=== PATIENT | male | born 1955 | race Caucasian/White ===

== ENCOUNTER 2019-01-30 09:25 | Inpatient (IN) | payer MEDICARE ==
--- NOTE | 2019-01-17 12:41 | HP ---
AMENDED REPORT NOW INCLUDES COSIGNER DESIGNATION HISTORY AND PHYSICAL: DATE OF ADMISSION/SURGERY: 01/30/19 DATE OF OFFICE VISIT: 01/17/19. SURGEON: Salma Valiente MD * (DICTATED BY OSMIN ALVARADO) PROCEDURE: Right total knee arthroplasty. CHIEF COMPLAINT: Right knee pain. HISTORY OF PRESENT ILLNESS: Mr. Doran is a 63-year-old gentleman with continued complaints of right knee pain. He has failed conservative treatment and elected to proceed with a right total knee arthroplasty. PAST MEDICAL HISTORY: Hypertension, obstructive hypertrophic cardiomyopathy, congenital insufficiency of mitral valve, BPH, and history of Lyme disease. PAST SURGICAL HISTORY: Right knee arthroscopy, tonsillectomy, adenoidectomy, and trigger finger release. CURRENT MEDICATIONS: 1. Diltiazem 180 mg daily. 2. Cardura 8 mg daily. 3. Metoprolol 25 mg a day. 4. Hydroxychloroquine as needed. ALLERGIES: PENICILLIN and SPIRONOLACTONE. FAMILY HISTORY: Cancer, COPD, stroke, and Alzheimer's. SOCIAL HISTORY: He is a 63-year-old gentleman, lives alone. He does not smoke or use drugs. Uses alcohol rarely. REVIEW OF SYSTEMS: A complete 14-point review of systems was reviewed with the patient, was all negative or noncontributory. He denies history of DVT, PE, hepatitis, HIV, or anesthesia problems. PHYSICAL EXAMINATION GENERAL: He is a well developed, well nourished, in no acute distress. VITAL SIGNS: He stands 71 inches tall, weighs 182 pounds. Blood pressure 142/ 84 and heart rate is 72. HEENT: Normocephalic, atraumatic. NECK: Supple. No palpable lymph nodes. PULMONARY: The lungs are clear to auscultation bilaterally. CARDIO: Regular rate and rhythm. Strong S1, S2. ABDOMEN: Soft, nontender, nondistended. NEUROLOGICAL: He is alert and oriented x3. MUSCULOSKELETAL: Right lower extremity: The skin is intact. There are no open wounds or abrasions. There is a 15-degree valgus deformity of the knee. Range of motion is 10 to 120 degrees of flexion with patellofemoral crepitus. He has a 2+ dorsalis pedis pulse. He is able to dorsiflex and plantarflex and he has intact sensation. ASSESSMENT AND PLAN: Mr. Doran is a 63-year-old gentleman with end-stage osteoarthritis of the right knee. He has failed conservative treatment and elected to proceed with a right total knee arthroplasty. The surgery is scheduled for 01/30/[address] Valiente discussed the risks and benefits of the surgery at today's visit and all of his questions were answered. He will follow up with Dr. Valiente 2 weeks after the surgery. OSMIN ALVARADO [id number]/[facility] #: [id number] TRISTAN
[~2019-01-30 09:25] MED LIST: Acetaminophen IV 1GM/100ML * 1,000 MG/100 ML VIAL IVPB ONE; Buffered Lidocaine 1% SYRIN* 1 ML/SYRINGE INTRADERM ONE; Dexamethasone IV* 4 MG/ML 1 ML (4 MG) IV SLOW PU ONE; Famotidine IV* 10 MG/ML 2 ML (20 mg) IV ONE; Gabapentin CAP(*) 300 MG PO ONE; Lactated Ringers 1000 ML Bag* 1,000 ML IV SCH; Tranexamic Acid 1,000 MG in NS 0.9% 50 ML* (outpatient use) IV SCH; celeCOXIB CAP* 200 MG PO ONE
[2019-01-30] MEDS ORDERED: Acetaminophen IV 1GM/100ML * 100 ML ONE (09:29)
--- OUTSIDE RECORDS SUMMARY | 2019-01-30 09:30 | XMS REPORT | Continuity of Care Document ---
:1955 External Reference #:[id number] Author Name Vida Dowling Care Team Providers Name Role Phone Kana Díaz MD Primary Care Physician Unavailable Payers Date Identification Numbers Payment Provider Subscriber Policy Number: [id number] Medicare Tu Doran PayID: [id number] [address] [place] [address] Effective: 2016 Policy Number: [id number] [employer] Tu Doran Expires: 2018 PayID: [id number] [address] [address] [place] [address] Policy Number: [id number] [facility] Tu Doran PayID: [id number] [address] [place] [address] Advance Directives Description No Information Available Problems Date Description Provider Status Onset: 09/19/2012 Electrocardiogram abnormal Shukri Boles M.D. Active Onset: 07/15/2014 Mitral valve disorder Shukri Boles M.D. Active Onset: 01/21/2016 Essential hypertension Shukri Boles M.D. Active Onset: 12/13/2018 Localized, primary osteoarthritis Salma Valiente M.D. Active Onset: 09/19/2012 Difficulty breathing Shukri Boles M.D. Resolved Resolved: 01/21/2016 Family History Date Family Member(s) Observation Comments General Cancer General Hypertension General Stroke Father Coronary Artery Disease [place] mid 60's age (CAD) 70 CVA tobacco use Mother dementia in sleep age 83 Onset: (01/21/2016) Siblings 4 four sisters no HCM or CAD as far as pt knows. Social History Type Date Description Comments Sex Unknown Marital Status 2016 2 children son 36 daughter 34 Lives With Alone Occupation Retired ETOH Use Occasionally consumes alcohol Tobacco Use Start: Unknown End: Patient is a former Quit in 1989 Unknown smoker Recreational Drug Use Denies Drug Use Smoking Status Reviewed: 01/17/19 Patient is a former Quit in 1989 smoker Exercise Type/Frequency Exercises regularly Exercise Type/Frequency Walks 5 times a week Allergies, Adverse Reactions, Alerts Date Description Reaction Status Severity Comments 10/08/2012 Penicillin mouth sores Active 06/09/2013 Spironolactone Active gynecomastia tenderness. Medications Medication Date Status Form Strength Qnty SIG Indications Ordering Provider Diltiazem HCL ER 09/08/ Active Caps ER 180mg 100cap 1 tablet Shukri 2013 24HR s each F. Yamileth Boles Cardura 00/ Active Tablets 8mg 90tabs 1 po qd in Unknown 0000 the evening Metoprolol 0000/ Active Tablets 25mg 1 by mouth Unknown Succinate ER 0000 ER 24HR every day Azithromycin / Active Tablets 250mg Take 2 Unknown 0000 Tablets By Mouth Together On Day 1 Then Take 1 Tablet Daily On Days 2 Through 5 Diltiazem HCL CD 09/08/ Hx Caps ER 360mg 1 by mouth Shukri 2013 - 24HR every day . 09/08/ Elvi2013 Yamileth Diltiazem HCL ER 02/27/ Hx Caps ER 120mg 60caps 1 by mouth Shukri 2013 - 24HR every day . 09/08/ Elvi, 2013 Yamileth Atenolol 11/27/ Hx Tablets 25mg 100tab 1/2 by Shukri 2012 - s mouth . 01/05/ every day Elvi 2018 Yamileth Spironolactone 11/13/ Hx Tablets 25mg 60tabs 1 po bid Shukri 2011 - . 06/09/ Elvi, 2012 Yamileth Spironolactone 11/07/ Hx Tablets 25mg 30tabs 1 po qd Shukri 2011 - . 11/13/ Elvi, 2011 Yamileth Atenolol 10/30/ Hx Tablets 25mg 1/2 tablet Shukri 2011 - po qd . Elvi, 2012 Yamileth Atenolol 10/21/ Hx Tablets 50mg 100tab 1/2 po qd Shukri 2011 - s F. 10/30/ Elvi 2011 Yamileth Diltiazem CD 10/21/ Caps ER 120mg 60caps 2 po qd Shukri 2011 - 24HR F. 02/27/ Elvi 2013 Yamileth Aspirin / Hx Tablets 81mg 1 po qd Unknown 0000 - DR (3-4 times 12/12/ weekly per 2019 pt 01/09/18) Atenolol / Hx Tablets 25mg 90tabs 2 po qd Unknown 0000 - 2011 Atorvastatin / Hx Tablets 10mg 30tabs 1 po qd Unknown Calcium 0000 - hold as of .2.13 for 2012 1 month Diovan HCT / Hx Tablets 320-12.5mg 90tabs 1/2 tablet Unknown 0000 - po qd 2011 Amoxicillin / Hx Tablets 500mg 180tab 2 po tid Unknown 0000 - s 2012 Meloxicam / Hx Tablets 15mg 1 by mouth Unknown 0000 - every day 12/12/ prn 2018 Augmentin / Hx Tablets 875-125mg one by Unknown 0000 - mouth tid 2015 Medications Administered in Office Medication Date Status Form Strength Qnty SIG Indications Ordering Provider Depomedrol Administered Injection Salma 40MG 019 Yamileth Valiente Depomedrol Administered Injection Salma 40MG 019 Yamileth Valiente Immunizations Description No Information Available Vital Signs Date Vital Result Comment 01/17/2019 9:02am Height 71 inches 5'11" Weight 182.00 lb BP Systolic 142 mmHg BP Diastolic 84 mmHg Respiratory Rate 16 /min Body Temperature 98.4 F Pain Level 2 BMI (Body Mass Index) 25.4 kg/m2 01/06/2019 11:11am Height 71 inches 5'11" Weight 180.31 lb Without Shoes Heart Rate 72 /min BP Systolic Sitting 150 mmHg Lue Reg Cuff BP Diastolic Sitting 90 mmHg Lue Reg Cuff BP Systolic Standing 152 mmHg Lue Reg Cuff BP Diastolic Standing 96 mmHg Lue Reg Cuff BMI (Body Mass Index) 25.1 kg/m2 Ejection Fraction 60-65% ECHO 03/29/17 12/13/2018 11:34am Height 71 inches 5'11" Weight 186.00 lb Heart Rate 72 /min BP Systolic 140 mmHg BP Diastolic 86 mmHg Body Temperature 98.5 F Pain Level 2 BMI (Body Mass Index) 25.9 kg/m2 05/02/2018 2:07pm Height 71 inches 5'11" Weight 194.00 lb BP Systolic 150 mmHg BP Diastolic 92 mmHg Respiratory Rate 17 /min Body Temperature 98.4 F Pain Level 2 BMI (Body Mass Index) 27.1 kg/m2 01/09/2018 1:18pm Height 71 inches 5'11" Weight 182.25 lb Heart Rate 60 /min BP Systolic Sitting 146 mmHg LA, reg cuff BP Diastolic Sitting 78 mmHg LA, reg cuff BMI (Body Mass Index) 25.4 kg/m2 Ejection Fraction 60%-65% echo 03/29/17 04/06/2017 1:42pm Height 71 inches 5'11" Weight 183.00 lb w/o shoes Heart Rate 60 /min BP Systolic Sitting 160 mmHg LA reg cuff BP Diastolic Sitting 86 mmHg LA reg cuff BMI (Body Mass Index) 25.5 kg/m2 Ejection Fraction 60% - 65% echo 03/29/17 03/20/2017 3:45pm Height 71 inches 5'11" Weight 181.75 lb w/o shoes Heart Rate 66 /min BP Systolic Sitting 166 mmHg LA reg cuff BP Diastolic Sitting 92 mmHg LA reg cuff BP Systolic Standing 128 mmHg la repeat sitting BP Diastolic Standing 84 mmHg la repeat sitting BMI (Body Mass Index) 25.3 kg/m2 Ejection Fraction 60% - 65% echo 05/30/16 01/21/2016 4:01pm Height 71 inches 5'11" Weight 177.50 lb Heart Rate 88 /min apical BP Systolic Sitting 142 mmHg LA, regular cuff BP Diastolic Sitting 78 mmHg LA, regular cuff BMI (Body Mass Index) 24.8 kg/m2 Ejection Fraction 55-60% stress echo 05/13/15 03/25/2015 3:41pm Height 71 inches 5'11" Weight 189.75 lb Heart Rate 70 /min home 56-64 BP Systolic Sitting 150 mmHg LA, reg (home 140/80) BP Diastolic Sitting 90 mmHg LA, reg (home 140/80) BMI (Body Mass Index) 26.5 kg/m2 Ejection Fraction 60%-65% 03/12/15 echo 09/08/2014 3:49pm Height 71 inches 5'11" Weight 197.50 lb with out shoes Heart Rate 62 /min BP Systolic Sitting 148 mmHg LA reg cuff BP Diastolic Sitting 90 mmHg LA reg cuff Respiratory Rate 16 /min BMI (Body Mass Index) 27.5 kg/m2 07/15/2014 3:23pm Height 71 inches 5'11" Weight 197.00 lb Heart Rate 52 /min BP Systolic Sitting 150 mmHg LA reg cuff BP Diastolic Sitting 86 mmHg LA reg cuff Respiratory Rate 12 /min BMI (Body Mass Index) 27.5 kg/m2 06/09/2013 4:02pm Height 71 inches 5'11" Weight 192.00 lb Heart Rate 51 /min BP Systolic 157 mmHg BP Diastolic 90 mmHg Respiratory Rate 14 /min BMI (Body Mass Index) 26.8 kg/m2 12/31/2012 3:02pm Height 71 inches 5'11" Weight 198.00 lb Heart Rate 60 /min 57 BP Systolic 152 mmHg 154/91 BP Diastolic 88 mmHg 154/91 BMI (Body Mass Index) 27.6 kg/m2 11/27/2012 2:51pm Height 71 inches 5'11" Weight 204.00 lb Heart Rate 72 /min BP Systolic 138 mmHg BP Diastolic 78 mmHg BMI (Body Mass Index) 28.4 kg/m2 10/21/2012 4:11pm Weight 221.00 lb Heart Rate 61 /min BP Systolic 170 mmHg BP Diastolic 90 mmHg Respiratory Rate 16 /min Results Description No Information Available Procedures Date Code Description Status 01/14/2019 14214 ECHO Transthoracic, Real-Time 2D With Doppler And Color Completed Flow 01/14/2019 33703 ECHO Transthoracic, Real-Time 2D With Doppler And Color Completed Flow 01/06/2019 53413 EKG Tracing & Interpretation Completed 12/13/2018 08790 Inject/Drain Joint/Bursa Major W/O US Completed 08/29/2018 15151 Destruction ALL Benign Or Premalignant Lesion (Other Than Completed [place] 08/27/2018 96282 Each Additional Biopsy Completed 08/27/2018 82435 Biopsy Skin Lesion Single Completed 01/09/2018 81607 EKG Tracing & Interpretation Completed 03/29/2017 92145 ECHO Transthoracic, Real-Time 2D With Doppler And Color Completed Flow 03/20/2017 80945 EKG Tracing & Interpretation Completed 05/30/2016 18208 ECHO Transthoracic, Real-Time 2D With Doppler And Color Completed Flow 01/21/2016 52005 EKG Tracing & Interpretation Completed 05/13/2015 64004 ECHO Stress Test Incl Perf Contiuous ekg Monitoring W/Phys Completed Superv 03/25/2015 83964 EKG Tracing & Interpretation Completed 03/12/2015 51253 ECHO Transthoracic, Real-Time 2D With Doppler And Color Completed Flow 08/03/2014 81805 ECHO Transthoracic, Real-Time 2D With Doppler And Color Completed Flow 07/15/2014 39751 EKG Tracing & Interpretation Completed 06/09/2013 16648 EKG Tracing & Interpretation Completed 11/27/2012 51313 EKG Tracing & Interpretation Completed 10/21/2012 26020 EKG Tracing & Interpretation Completed 10/07/2012 07537 ECHO Transthoracic, Real-Time 2D With Doppler And Color Completed Flow 09/19/2012 73327 ECHO Stress Test Incl Perf Contiuous ekg Monitoring W/Phys Completed Superv 09/19/2012 38038 ECHO Stress Test Incl Perf Contiuous ekg Monitoring W/Phys Completed Superv Encounters Type Date Location Provider Dx Diagnosis Office Visit 01/06/2019 [place] [facility] Renetta Hendrix, I42.1 Obstructive 11:30a N.P. hypertrophic cardiomyopathy I34.0 Nonrheumatic mitral (valve) insufficiency E78.00 Pure hypercholesterolemia, unspecified I10 Essential (primary) hypertension Office Visit 12/13/2018 10:30a [facility] Salma Valiente, M25.562 Pain in left Of [facility] M.D. knee M25.561 Pain in right knee M25.462 Effusion, left knee M25.461 Effusion, right knee M17.0 Bilateral primary osteoarthritis of knee M21.061 Valgus deformity, not elsewhere classified, right knee M21.062 Valgus deformity, not elsewhere classified, left knee M17.31 Unilateral post-traumatic osteoarthritis, right knee M17.12 Unilateral primary osteoarthritis, left knee Office Visit 08/27/2018 9:20a [facility] Romana Torres, L82.1 Other seborrheic MD keratosis D23.71 Oth benign neoplasm skin/ right lower limb, including hip D23.72 Oth benign neoplasm skin/ left lower limb, including hip D23.62 Oth benign neoplasm skin/ left upper limb, inc shoulder L98.9 Disorder of the skin and subcutaneous tissue, unspecified Office Visit 05/02/2018 [facility] Ana Maria M65.331 Trigger finger, 2:00p [facility] Pacheco right middle finger [facility] Office Visit 01/09/2018 [place] Shukri Servin I42.1 Obstructive 1:30p Cardiology Yamileth Boles hypertrophic cardiomyopathy I34.0 Nonrheumatic mitral (valve) insufficiency I10 Essential (primary) hypertension E78.00 Pure hypercholesterolemia, unspecified Office Visit 04/06/2017 2:00p [facility] Vida Platt, I34.0 Nonrheumatic mitral PA (valve) insufficiency I42.1 Obstructive hypertrophic cardiomyopathy I10 Essential (primary) hypertension Office Visit 03/20/2017 [place] Shukri Servin I42.1 Obstructive 3:20p Cardiology Yamileth Boles hypertrophic cardiomyopathy I34.0 Nonrheumatic mitral (valve) insufficiency I10 Essential (primary) hypertension Office Visit 01/21/2016 3:40p [place] Shukri Servin I34.0 Nonrheumatic mitral Cardiology Yamileth Boles (valve) insufficiency I42.1 Obstructive hypertrophic cardiomyopathy I10 Essential (primary) hypertension Office Visit 03/25/2015 3:20p [facility] Shukri Servin 424.0 Mitral Valve Yamileth Boles Disorder 401.1 Hypertension Benign 425.9 Cardiomyopathy Secondary Unspecified Office Visit 09/08/2014 4:00p [facility] Shukri Servin 424.0 Mitral Valve Yamileth Boles Disorder 401.1 Hypertension Benign 425.9 Cardiomyopathy Secondary Unspecified Office Visit 07/15/2014 3:20p [facility] Shukri Servin 401.1 Theresa Boles M.D. Benign 272.0 Hypercholesterolemia Pure 424.0 Mitral Valve Disorder Office Visit 06/09/2013 3:40p [facility] Shukri Servin 401.1 Hypertension Yamileth Boles Benign 786.09 Dyspnea & Respiratory Abnormalities Other 272.0 Hypercholesterolemia Pure Office Visit 12/31/2012 [place] Nurse Visit cc 401.1 Hypertension Benign 3:00p Cardiology Office Visit 11/27/2012 Sor[facility] Servin 786.09 Dyspnea & 3:00p Cardiology Yamileth Boles Respiratory Abnormalities Other 272.0 Hypercholesterolemia Pure 401.1 Hypertension Benign 794.31 Electrocardiogram (ECG) (EKG) Abnormal Office Visit 10/21/2012 [facility] Servin 786.09 Dyspnea & 4:00p Cardiology Yamileth Boles Respiratory Abnormalities Other 424.0 Mitral Valve Disorder 272.0 Hypercholesterolemia Pure 794.31 Electrocardiogram (ECG) (EKG) Abnormal 401.1 Hypertension Benign Office Visit 09/19/2012 [facility] Servin 786.09 Dyspnea & 3:30p Cardiology Yamileth Boles Respiratory Abnormalities Other 794.31 Electrocardiogram (ECG) (EKG) Abnormal 272.0 Hypercholesterolemia Pure Plan of Treatment Future Appointment(s):01/30/2019 12:30 pm - Salma Valiente M.D. at [facility]02/25/2019 8:20 am - Romana Torres MD at [facility]
--- OUTSIDE RECORDS SUMMARY | 2019-01-30 09:30 | XMS REPORT | Continuity of Care Document ---
:1955 External Reference #:[id number] Author Name PinedaHemalatha Care Team Providers Name Role Phone Kana Díaz MD Primary Care Physician Unavailable Payers Date Identification Numbers Payment Provider Subscriber Policy Number: [id number] Medicare Tu Doran PayID: [id number] [address] [place] [address] Effective: 2016 Policy Number: [id number] [employer] Tu Doran Expires: 2018 PayID: [id number] [address] [address] [place] [address] Policy Number: [id number] [facility] Tu Doran PayID: [id number] [address] [place] [address] Advance Directives Description No Information Available Problems [...] Hypertension General Stroke Father Coronary Artery Disease [place] mid 60's age (CAD) 70 CVA tobacco [...] Use Denies Drug Use Smoking Status Reviewed: 01/06/19 Patient is a former Quit in 1989 [...] tablet Shukri 2013 24HR s each F. Mauser, morning M.D. Cardura / Active Tablets 8mg 90tabs 1 po qd Unknown 0000 in the evening Metoprolol 0000/ Active Tablets 25mg 1 by Unknown Succinate ER 0000 ER 24HR mouth every day Diltiazem HCL CD 09/08/ Hx Caps ER 360mg 1 by Shukri 2013 - 24HR mouth F. Mauser, 09/08/ every day M.D. 2013 Diltiazem HCL ER 02/27/ Hx Caps ER 120mg 60caps 1 by Shukri 2013 - 24HR mouth F. Mauser, 09/08/ every day M.D. 2013 Atenolol 11/27/ Hx Tablets 25mg 100tab 1/2 by Shukri 2012 - s mouth F. Mauser, 01/05/ every day M.D. 2019 Spironolactone 11/13/ Hx Tablets 25mg 60tabs 1 po bid Shukri 2011 - F. Mauser, 06/09/ M.D. 2012 Spironolactone 11/07/ Hx Tablets 25mg 30tabs 1 po qd Shukri 2011 - F. Liviauser, 11/13/ M.D. 2011 Atenolol 10/30/ Hx Tablets 25mg 1/2 Shukri 2011 - tablet po F. Mauser, 11/27/ qd M.D. 2012 Atenolol 10/21/ Hx Tablets 50mg 100tab 1/2 po qd Shukri 2011 - s F. Mauser, 10/30/ Yamileth 2011 Diltiazem CD 10/21/ Caps ER 120mg 60caps 2 po qd Shukri 2011 - 24HR Malathi Boles, 02/27/ Yamileth 2013 Aspirin / Hx Tablets 81mg 1 po qd Unknown 0000 - DR (3-4 12/12/ times 2019 weekly per pt 01/09/18) Atenolol / Hx Tablets 25mg 90tabs 2 po qd Unknown 0000 - 2011 Atorvastatin / Hx Tablets 10mg 30tabs 1 po qd Unknown Calcium 0000 - hold as 1.2.13 2012 for 1 month Diovan HCT / Hx Tablets 320-12.5mg 90tabs 11/27 Unknown 0000 - tablet po 11/11/ qd 2011 Amoxicillin / Hx Tablets 500mg 180tab 2 po tid Unknown 0000 - s 2012 Meloxicam / Hx Tablets 15mg 1 by Unknown 0000 - mouth every day 2018 prn Augmentin / Hx Tablets 875-125mg one by Unknown 0000 - mouth tid 2015 Medications Administered in Office Medication Date Status Form Strength Qnty SIG Indications Ordering Provider Depomedrol Administered Injection Salma 40MG 019 Yamileth Valiente Depomedrol Administered Injection Salma 40MG 019 Yamileth Valiente Immunizations Description No Information Available Vital Signs Date Vital Result Comment 01/06/2019 11:11am Height 71 inches 5'11" Weight [...] Information Available Procedures Date Code Description Status 01/06/2019 54094 EKG Tracing & Interpretation Completed 12/13/2018 92547 Inject/Drain Joint/Bursa Major W/O US Completed 08/29/2018 10463 Destruction ALL Benign Or Premalignant Lesion (Other Than Completed [place] 08/27/2018 81871 Each Additional Biopsy Completed 08/27/2018 86076 Biopsy Skin Lesion Single Completed 01/09/2018 98553 EKG Tracing & Interpretation Completed 03/29/2017 26247 ECHO Transthoracic, Real-Time 2D With Doppler And Color Completed Flow 03/20/2017 79062 EKG Tracing & Interpretation Completed 05/30/2016 88682 ECHO Transthoracic, Real-Time 2D With Doppler And Color Completed Flow 01/21/2016 06125 EKG Tracing & Interpretation Completed 05/13/2015 52930 ECHO Stress Test Incl Perf Contiuous ekg Monitoring W/Phys Completed Superv 03/25/2015 47201 EKG Tracing & Interpretation Completed 03/12/2015 67471 ECHO Transthoracic, Real-Time 2D With Doppler And Color Completed Flow 08/03/2014 14067 ECHO Transthoracic, Real-Time 2D With Doppler And Color Completed Flow 07/15/2014 29412 EKG Tracing & Interpretation Completed 06/09/2013 91071 EKG Tracing & Interpretation Completed 11/27/2012 06258 EKG Tracing & Interpretation Completed 10/21/2012 30211 EKG Tracing & Interpretation Completed 10/07/2012 58269 ECHO Transthoracic, Real-Time 2D With Doppler And Color Completed Flow 09/19/2012 93286 ECHO Stress Test Incl Perf Contiuous ekg Monitoring W/Phys Completed Superv 09/19/2012 40781 ECHO Stress Test Incl Perf Contiuous ekg Monitoring W/Phys Completed Superv Encounters Type Date Location Provider Dx Diagnosis Office Visit 12/13/2018 [facility] Salma Valiente, M25.562 Pain in left knee 10:30a [facility] M25.561 Pain in right knee M25.462 Effusion, left knee M25.461 Effusion, right knee M17.0 Bilateral primary osteoarthritis of knee M21.061 Valgus deformity, not elsewhere classified, right knee M21.062 Valgus deformity, not elsewhere classified, left knee M17.31 Unilateral post-traumatic osteoarthritis, right knee M17.12 Unilateral primary osteoarthritis, left knee Office Visit 08/27/2018 9:20a [facility] Romana Torres, L82.1 Other seborrheic MD [...] right middle finger [facility] Office Visit 01/09/2018 [place] Shukri Servin I42.1 Obstructive 1:30p Cardiology Yamileth Boles hypertrophic cardiomyopathy I34.0 Nonrheumatic mitral (valve) insufficiency I10 Essential (primary) hypertension E78.00 Pure hypercholesterolemia, unspecified Office Visit 04/06/2017 2:00p [place] [facility] Vida Platt, I34.0 Nonrheumatic mitral PA (valve) insufficiency I42.1 Obstructive hypertrophic cardiomyopathy I10 Essential (primary) hypertension Office Visit 03/20/2017 [place] Shukri Servin I42.1 Obstructive 3:20p Cardiology Yamileth Boles hypertrophic cardiomyopathy I34.0 Nonrheumatic mitral (valve) insufficiency I10 Essential (primary) hypertension Office Visit 01/21/2016 3:40p [place] Shukri Servin I34.0 Nonrheumatic mitral Cardiology Yamileth Boles (valve) insufficiency I42.1 Obstructive hypertrophic cardiomyopathy I10 Essential (primary) hypertension Office Visit 03/25/2015 3:20p [facility] Shukri Servin 424.0 Mitral Valve Yamileth Boles Disorder 401.1 Hypertension Benign 425.9 Cardiomyopathy Secondary Unspecified Office Visit 09/08/2014 4:00p [facility] Shukri Servin 424.0 Mitral Valve Yamileth Boles Disorder 401.1 Hypertension Benign 425.9 Cardiomyopathy Secondary Unspecified Office Visit 07/15/2014 3:20p [facility] Shukri Servin 401.1 Theresa Boles M.D. Benign 272.0 Hypercholesterolemia Pure 424.0 Mitral Valve Disorder Office Visit 06/09/2013 3:40p [facility] Shukri Servin 401.1 Theresa Boles M.D. Benign 786.09 Dyspnea & Respiratory Abnormalities Other 272.0 Hypercholesterolemia Pure Office Visit 12/31/2012 [place] Nurse Visit cc 401.1 Hypertension Benign 3:00p Cardiology Office Visit 11/27/2012 [place] Serv[place] 786.09 Dyspnea & 3:00p Cardiology Yamileth Boles Respiratory Abnormalities Other 272.0 Hypercholesterolemia Pure 401.1 Hypertension Benign 794.31 Electrocardiogram (ECG) (EKG) Abnormal Office Visit 10/21/2012 [place] Shukri Servin 786.09 Dyspnea & 4:00p Cardiology Yamileth Boles Respiratory Abnormalities Other 424.0 Mitral Valve Disorder 272.0 Hypercholesterolemia Pure 794.31 Electrocardiogram (ECG) (EKG) Abnormal 401.1 Hypertension Benign Office Visit 09/19/2012 [place] Shukri Servin 786.09 Dyspnea & 3:30p Ramona Boles M.D. Respiratory Abnormalities Other 794.31 Electrocardiogram (ECG) (EKG) Abnormal 272.0 Hypercholesterolemia Pure Plan of Treatment Future Appointment(s):01/14/2019 9:00 am - [place] ECHO Schedule at [facility]01/30/2019 11:30 am - Salma Orcco, M.D. at [facility]01/17/2019 9:00 am - Salma Valiente M.D. at [facility]02/25/2019 8:20 am - Romana Torres MD at [facility] Wnksrsqzzyt08/11/2019 - Renetta Hendrix, N.P.I42.1 Obstructive hypertrophic cardiomyopathyNew Orders: Echocardiogram, Scheduled: 01/14/19I34.0 Nonrheumatic mitral (valve) qasymmeypajveI08.00 Pure hypercholesterolemia, [id number] Essential (primary ) hypertensionFollow up:02/2020 annual visitRecommendations:BP elevated here Purchase new BP cuff Check BP 1-2x daily Bring BP cuff to echo appointment.
[2019-01-30] MEDS ORDERED: celeCOXIB CAP* 100 MG ONE (09:31)
[2019-01-30] MEDS ORDERED: Dexamethasone IV* 4 MG/ML 1 ML (4 MG) ONE (09:31)
[2019-01-30] MEDS ORDERED: Famotidine IV* 10 MG/ML 2 ML (20 mg) ONE (09:32)
[2019-01-30] MEDS ORDERED: Gabapentin CAP(*) 300 MG ONE (09:32)
[2019-01-30] MEDS ORDERED: Buffered Lidocaine 1% SYRIN* 1 ML/SYRINGE INTRADERM ONE (09:32)
[2019-01-30] MEDS ORDERED: Clindamycin 900 MG/D5W BAG(*) 900 MG/50 ML BAG IVPB ONE (09:32)
[2019-01-30] MEDS ORDERED: Propofol* 10 MG/ML 20 ML BTL ONE ×2 (09:57→17:51)
[2019-01-30] MEDS ORDERED: Ondansetron INJ* 2 MG/ML VIAL ONE (09:57)
[2019-01-30] MEDS ORDERED: Bupivacaine 0.5% SDV PF* 30ML VIAL ONE (09:57)
[2019-01-30] MEDS ORDERED: fentaNYL* 50 MCG/ML 2 ML VIAL (100 MCG VIAL) ONE ×2 (09:57→15:30)
[2019-01-30] MEDS ORDERED: KETAMINE HCL* 50 MG/ML 10 ML VIAL ONE (09:57)
[2019-01-30] MEDS ORDERED: Midazolam* 1 MG/ML 5 ML VIAL (5 MG) ONE ×3 (09:57→15:29)
[2019-01-30] MEDS ORDERED: ROPIVACAINE 5 MG/ML 30 ML BTL (0.5%) ONE ×2 (10:57→11:20)
[2019-01-30] MEDS ORDERED: HYDROmorphone INJ1* 1 MG/ML SYRINGE IV PRN (12:37)
[2019-01-30] MEDS ORDERED: DiMENhydriNATE IV* 50 MG/ML VIAL IV PUSH PRN (12:37)
[2019-01-30] MEDS ORDERED: Naloxone* 0.4 MG/ML 1 ML VIAL IV PRN (12:37)
[2019-01-30] MEDS ORDERED: fentaNYL* 50 MCG/ML 2 ML VIAL (100 MCG VIAL) IV PRN (12:37)
[2019-01-30] MEDS ORDERED: Ondansetron INJ* 2 MG/ML VIAL IV PRN ×2 (12:37→14:22)
[2019-01-30] MEDS ORDERED: Atropine 1MG/ML INJ* 1 ML VIAL ONE (13:14)
[2019-01-30] MEDS ORDERED: Glycopyrrolate IV* 0.2 MG/ML 1 ML VIAL ONE (13:14)
[2019-01-30] MEDS ORDERED: diPHENhydraMINE IV* 50 MG/ML 1 ml VIAL (BENADRYL) IV PRN (14:22)
[2019-01-30] MEDS ORDERED: traMADol TAB* 50 MG PO PRN (14:22)
[2019-01-30] MEDS ORDERED: oxyCODONE TAB* 5 MG TAB PO PRN (14:22)
[2019-01-30] MEDS ORDERED: Ondansetron TAB* 4 MG PO PRN (14:22)
[2019-01-30] MEDS ORDERED: oxyCODONE/Acetamin 5/325 MG* TAB PO PRN (14:22)
[2019-01-30] MEDS ORDERED: Cyclobenzaprine TAB* 10 MG PO PRN (14:22)
[2019-01-30] MEDS ORDERED: Bisacodyl SUPP* 10 MG SUPP PR PRN (14:22)
[2019-01-30] MEDS ORDERED: Magnesium Hydroxide LIQ* 30 ML UDC PO PRN (14:22)
[2019-01-30] MEDS ORDERED: Morphine VIAL* 4 MG/ML VIAL (1 ml vial) IV PRN (14:22)
[2019-01-30] MEDS ORDERED: Polyethylene Glycol 3350* 17 GM PACKET PO PRN (14:22)
[2019-01-30] MEDS ORDERED: Acetaminophen TAB* 325 MG PO SCH (15:00)
[2019-01-30] MEDS ORDERED: Lactated Ringers 1000 ML Bag* 1,000 ML IV SCH (15:00)
--- NOTE | 2019-01-30 17:40 | PN ---
Progress Note - Progress Note Date of Service: 01/30/19 Note: Patient seen in PACU . Alert and comfortable. Still some numbness in feet, block not totally worn off. Moving right foot with +DF. s/p RTK.
[2019-01-30] MEDS ORDERED: Albuterol 2.5 MG/3 ML NEB.SOL* (0.083%) INH PRN (19:29)
[2019-01-30] MEDS: oxyCODONE/Acetamin 5/325 MG* TAB PO PRN (20:05)
[2019-01-30] MEDS: Acetaminophen TAB* 325 MG PO SCH (20:06)
[2019-01-30] MEDS: Clindamycin 600 MG IVPREMIX(* 600 MG/50 ML SDV IV SCH (20:06)
--- NOTE | 2019-01-30 20:32 | CONS ---
CC: Dr. Salma Valiente; Dr. Kana Díaz; Dr. Sandy Faulkner* CONSULTATION REPORT: DATE OF CONSULT: 01/30/19. CONSULTING PROVIDER: Dr. Salma Valiente. PRIMARY CARE PROVIDER: Dr. Kana Díaz. MY ATTENDING WHILE IN THE HOSPITAL: Dr. Sandy Faulkner. REASON FOR CONSULT: Co-management of comorbid medical conditions. HISTORY OF PRESENT ILLNESS: Mr. Doran is a 63-year-old male with past medical history significant for hypertrophic obstructive cardiomyopathy, hypertension and a history of Lyme disease, who is currently postop on a right total knee arthroplasty and is doing well. The patient has no chest pain, shortness of breath, dizziness, palpitations, nausea, or vomiting. The patient denies fevers or chills. The patient had a sinus infection and has had some residual postnasal drip with this, which he feels has been causing a cough, but generally has not been wheezing. The patient denies having had shortness of breath, dyspnea on exertion, orthopnea, swelling in his legs, recent illnesses, recent changes in medications. The patient took all of his medications this morning. The patient is on hydroxychloroquine as needed for presumed inflammatory arthritis in his hands and he takes it for about 2 to 3 weeks at a time when this flares up and most recently was 1 month ago. The patient has no recent history of exposure to the flu or passing out. PAST MEDICAL HISTORY: Hypertension, obstructive hypertrophic cardiomyopathy congenital, mitral valve insufficiency, history of Lyme disease. PAST SURGICAL HISTORY: Right knee arthroscopy, tonsillectomy, adenoidectomy, trigger finger release, colonoscopies in 2004 and 2016. MEDICATIONS: 1. Diltiazem 180 mg p.o. daily. 2. Cardura 8 mg p.o. daily. 3. Metoprolol 25 mg p.o. daily. 4. Hydroxychloroquine 200 mg p.o. daily as needed. ALLERGIES: PENICILLIN and SPIRONOLACTONE. FAMILY HISTORY: The patient's father of CVA at 71 and also had a CABG. The patient's mother at 83 of dementia. The patient has 4 sisters with hypertension. SOCIAL HISTORY: The patient quit smoking in 1989. He smoked on and off for 20 years prior to that. The patient drinks alcohol occasionally. The patient denies illicit drug use. 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 REVIEW OF SYSTEMS: A 14-point review of systems was reviewed and is negative except as above in the HPI. PHYSICAL EXAM: General: The patient is a 63-year-old male who appears stated age and sitting comfortably in the bed, in no acute distress. Vital Signs: At the time of evaluation, temperature 97.3, pulse rate of 47, respiratory rate 14 , oxygen saturation 100% on room air, blood pressure 143/70. HEENT: Head: Normocephalic, atraumatic. Sclerae anicteric. No conjunctival injection. Nasal mucosa moist. Oral mucosa moist. No pharyngeal discharge or exudate. Neck: Supple, nontender. No lymphadenopathy. No carotid bruits auscultated. No JVD. Cardiac: Regular rate and rhythm. No clicks, murmurs, gallops, or rubs. Pulses are 2+ in bilateral dorsalis pedis, posterior tibialis, and radial areas. Respiratory: Clear to auscultation in the left lobe. Rhonchi and slight expiratory wheezing heard in the right lobe, improving with coughing. Abdomen: Soft, nontender, nondistended. Bowel sounds present and normoactive in all 4 quadrants. No hepatosplenomegaly. No abdominal bruits auscultated. No hepatojugular reflux. Genitourinary: No suprapubic or CVA tenderness. Skin: Clean, dry, intact. No rash. Right knee incision covered with bulky dressing. DIAGNOSTIC STUDIES/LAB DATA: Preoperatively, white blood cell count 9.3, hemoglobin 15.6, platelet count 282,000. INR 0.86, APTT 29.8. Sodium 139, potassium 3.9, chloride 101, carbon dioxide 30, anion gap 8, BUN 13, creatinine 0.93, glucose 102, calcium 9.8. Bilirubin 0.5, AST 20, ALT 22, alkaline phosphatase 62. Protein 7.0, albumin 4.4, globulin 2.6. Urinalysis unremarkable. ASSESSMENT AND PLAN: Impression: Mr. Doran is a 63-year-old male with past medical history significant for hypertrophic obstructive cardiomyopathy, hypertension, mitral valve insufficiency and Lyme disease, who is status post right total knee arthroplasty and is doing well. 1. Postoperative state management per Orthopedics. Monitor H and H, PT/OT, DVT prophylaxis with apixaban. Remove Melo catheter when possible. Bowel regimen. 2. Hypertrophic obstructive cardiomyopathy. The patient was seen preoperatively by his route sales specialist Dr. Celio Villalobos who recommended continuing metoprolol perioperatively. We will decrease the dose of diltiazem to avoid rebound and hold the Cardura until the patient's blood pressure is able to tolerate it. This may be able to be restarted on the day after surgery. Given that he took all of his medications on the day of surgery, should be monitored closely for hypotension. 3. Hypertension. Management as above. 4. Mitral valve insufficiency. The patient should be hydrated per postoperative protocol and avoid dehydration. 5. DVT prophylaxis with apixaban. 6. FEN: The patient will have a diet as tolerated and have fluids per postoperative protocol. 7. Disposition: Per Orthopedics. TIME SPENT: Approximately 45 minutes were spent on this consultation, 20 of which was spent [id number] with the patient, obtaining history and physical and discussing the treatment plan. Plan was discussed with my attending, Dr. Suggs and she is in agreement. OSMIN ALICEA [id number]/[facility] #: [id number] MTDD
[2019-01-30] MEDS ORDERED: Doxazosin TAB* 2 MG PO SCH (21:00)
[2019-01-30] MEDS: Magnesium Hydroxide LIQ* 30 ML UDC PO SCH (21:57)
[2019-01-30] MEDS: Docusate CAP* 100 MG PO SCH (22:01)
[2019-01-31] MEDS: oxyCODONE/Acetamin 5/325 MG* TAB PO PRN ×4 (00:14→12:07)
[2019-01-31] MEDS: Acetaminophen TAB* 325 MG PO SCH ×2 (03:54→12:11)
[2019-01-31] MEDS: Clindamycin 600 MG IVPREMIX(* 600 MG/50 ML SDV IV SCH ×2 (04:00→12:08)
[2019-01-31 06:12] LABS: Hematocrit 36 % (42-52); Hemoglobin 12.2 g/dl (14.0-18.0); Mean Platelet Volume 7.7 fL (7.4-10.4); Platelet Count 214 10^3/ul (150-450)
[2019-01-31 06:30] LABS: BUN/Creatinine Ratio 15.5 (8-20); Calcium 8.9 mg/dL (8.6-10.3); EGFR African American 134.7 (>60); EGFR Non-African American 111.3 (>60); Potassium 4.3 mmol/L (3.5-5.0)
[2019-01-31] MEDS ORDERED: Diltiazem CD CAP* 180 MG PO SCH ×2 (07:00)
[2019-01-31] MEDS ORDERED: Diltiazem CD CAP* 120 MG PO SCH (07:00)
[2019-01-31] MEDS: Docusate CAP* 100 MG PO SCH (08:14)
[2019-01-31] MEDS: Magnesium Hydroxide LIQ* 30 ML UDC PO SCH (08:18)
--- NOTE | 2019-01-31 08:20 | OP ---
OPERATIVE NOTE: DATE OF OPERATION: 01/30/19 DATE OF : 51 ATTENDING SURGEON: Salma Valiente MD PRODUCE WRAPPER: OSMIN Lee Ms. did help throughout the procedure with preparation of the leg, wound retraction, manipulation of the knee, and wound closure. ANESTHESIOLOGIST: Dr. Umanzor. ANESTHESIA: Spinal. 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 POST-OP DIAGNOSIS: Severe end-stage degenerative osteoarthritis of the right knee, posttraumatic with valgus deformity. OPERATIVE PROCEDURE: Right total knee arthroplasty. TOURNIQUET TIME: 55 minutes. COMPLICATIONS: None. ESTIMATED BLOOD LOSS: 200 cc. SPECIMENS: Bone and cartilage from the right knee joint sent to Pathology. HARDWARE: This is cemented Treviño [employer] Nephew total knee arthroplasty hardware. Two packages of Simplex bone cement were used. For the femur, a right size 7, Oxinium posterior stabilized Legion femoral component. For the tibia, a size 6 , right Charley II tibial baseplate. For the insert, a 9-mm posterior stabilized articular insert size 5/6. For the patella, a 35 mm, 3-peg all-poly patella with 7.5 thickness. BRIEF HISTORY/INDICATIONS: Mr. Doran is a 63-year-old gentleman who had prior trauma to the right knee in his 20s. He had 2 surgeries including the ACL reconstruction. He went on to develop posttraumatic osteoarthritis, which was quite severe with [id number] contact. He started to develop valgus deformity as well. He failed conservative treatment with antiinflammatories, pain medication, intraarticular injections, and physical therapy. Due to continued pain and decreased quality of life, he elected to undergo right total knee arthroplasty. Informed consent was obtained from the patient. He understood the risks of surgery included, but were not limited to bleeding, infection, damage to nearby structures, continued pain, need for further surgery, intraoperative fracture, nerve palsy, hardware failure or loosening, knee stiffness, loss of motion, stroke, heart attack, blood clot, and . He wished to proceed. INTRAOPERATIVE FINDINGS: Intraoperatively, the patient had valgus deformity of 15 degrees at the start of the case. He had flexion contracture of 20 degrees. He had intraoperatively full thickness loss of cartilage in all 3 compartments. There was no ACL. There was no lateral meniscus. DESCRIPTION OF PROCEDURE: Mr. Doran was identified in the preanesthesia unit. His right lower extremity was marked as the correct operative site. Informed consent was signed and placed in the chart. The patient was taken to the operating room and placed under spinal anesthesia. A Melo catheter was placed. Right lower extremity was prepped and draped in the usual sterile fashion. Preop time-out was made to correctly identify the patient, side and site. Appropriate perioperative antibiotics were given within 1 hour of incision. Tourniquet was inflated until the tourniquet time for this procedure was 55 minutes. A midline incision was made with a 10 blade. A new 10-blade was used to make a standard medial parapatellar arthrotomy. The knee was flexed up. The anterior horn of the lateral meniscus was obliterated. There was no ACL. A drill was used to enter the distal femur. Intramedullary distal femoral cutting guide was pinned on the distal femur. Oscillating saw was used to make the distal femoral cut. Next, the external rotation guide was pinned on the distal femur. Distal femur was sized to a size 7. Size 7 multi-cutting jig was pinned on the distal femur. Oscillating saw was used to make the appropriate 4 chamfer cuts. PCL was completely released. Extramedullary tibial cutting guide was pinned on the proximal tibia. Oscillating saw was used to make the proximal tibial cut perpendicular to the mechanical axis of the tibia. The bone was carefully removed. The knee was brought out into full extension. The spacer block had good fit with the knee in full extension. There was some lateral tightness. Electrocautery was used to elevate soft tissue along the posterolateral capsule. Small amount of pie crusting was performed along the lateral ligaments. Medial and lateral ligaments were well balanced. Flexion and extension gaps was well balanced. The knee was flexed up. Lamina senior fund accountant was placed both medially and laterally. Any remaining meniscus was carefully removed using electrocautery. Curved osteotome was used to remove any posterior osteophytes. Tibial tray and drop ryley were placed and once again confirmed a satisfactory tibial cut. A right size 7 femoral trial was impacted on to the distal femur and had excellent fit and stability. The box for the posterior-stabilized implant was prepared using a reamer and box-cut osteotome. A size 6 tibial tray trial with a 9-mm insert trial was placed and the knee was taken through a range of motion. The knee had full extension to 130 degrees of flexion with satisfactory patellofemoral tracking. The patella was everted. A 7 mm of patellar bone and cartilage was carefully removed using an oscillating saw. The patella was sized to a size 35. Three peg holes were drilled through the size 35 guide. A 35 trial patella was placed and the knee was taken through a range of motion. There was satisfactory patellofemoral tracking. All trials were carefully removed. The tibia was subluxed anteriorly and sized to a size 6. Proximal tibia was prepared using a size 6 keel punch. All bony cut surfaces were copiously irrigated with sterile saline and dried. Final implants were cemented into place starting with the tibia followed by the femur and last the patella. A 9- mm insert trial was placed and the knee was brought out into full extension. Tourniquet was turned down at 55 minutes. The knee was copiously irrigated with sterile saline. Electrocautery was used to obtain meticulous hemostasis. Once the cement had fully cured, the insert trial was removed. Any excess cement was removed from around the capsule and hardware. Final insert chosen was a 9-mm posterior-stabilized articular insert size 5/6. This was locked into position on the tibial tray. Stability of the insert was checked and rechecked and noted to be stable. The extensor mechanism was closed using interrupted #1 Vicryl. The rest of the incision was closed in a layered fashion using 0 and 2-0 Vicryl. Skin was closed using running 3-0 nylon suture. Sterile Xeroform, 4x4s, and Webril were used to cover the incision. Soham wrap and cold pack were placed over this. The patient's anesthesia was reversed without difficulty. He was taken to the PACU in stable condition. Intended weightbearing will be weightbearing as tolerated. Intended DVT prophylaxis will be Eliquis. [id number]/[facility] #: [id number] [facility] HOSPITALMichelle
[2019-01-31] MEDS ORDERED: Apixaban* 2.5 MG TAB PO SCH (09:00)
[2019-01-31] MEDS ORDERED: Metoprolol Succinate XL TAB* 25 MG PO SCH ×2 (09:00)
--- NOTE | 2019-01-31 12:25 | PN ---
Progress Note - Progress Note Date of Service: 01/31/19 SOAP: Subjective: []Patient seen at bedside, doing well. Walked well with PT this am. Denies SOB < CP, palpitations or dizziness. He would like to go home this afternoon after PT session. Objective: [] Vital Signs Temp 97.2 F 01/31/19 11:55 Pulse 51 01/31/19 11:55 Resp 16 01/31/19 12:07 BP 138/78 01/31/19 11:55 Pulse Ox 96 01/31/19 11:55 Intake & Output 01/30/19 01/31/19 01/31/19 18:59 06:59 18:59 Intake Total 3480 1320 480 Output Total 100 2425 Balance 3380 -1105 480 Weight 184 lb Intake: IV Fluids 3000 LR 3000 Oral 480 1320 480 Output: Melo 100 2425 Other: # Bowel Movements 0 Laboratory Results - last 24 hr 01/31/19 01/31/19 05:57 05:57 Hgb 12.2 L Hct 36 L Plt Count 214 MPV 7.7 Sodium 136 Potassium 4.3 Chloride 105 Carbon Dioxide 26 Anion Gap 5 BUN 11 Creatinine 0.71 Est GFR ( Amer) 134.7 Est GFR (Non-Af Amer) 111.3 BUN/Creatinine Ratio 15.5 Glucose 126 H Calcium 8.9 right knee dressings dry and intact- will be changed before discharge +DF right ankle sensation and circulation are intact distally Assessment: []s/p right total knee arthroplasty POD #1 Plan: []PT this afternoon- WBAT Eliquis 2.5 mg BID Dressing change before d/c later this afternoon Follow up with Dr. Valiente in 10-14 days
--- NOTE | 2019-01-31 13:40 | PN ---
Subjective Date of Service: 01/31/19 Interval History: Pt seen and examined. Meds and labs reviewed. CC: N/A ROS: Denied MCKOY/dizziness, F/C, N/V, CP, SOB, increased cough, sputum production , abd pain, diarrhea, constipation, dysuria, myalgias, arthralgias, throat pain , and new skin lesions. The rest of the 14 point ROS are unremarkable. PHYSICAL EXAM: GEN APPEARANCE: Awake, not in acute distress HEENT: NC/AT, PERRLA, moist oral mucosa, (-) throat erythema NECK: Soft, supple, (-) cervical LAD, (-)JVD HEART: S1S2 WNL, slightly bradycardic RRR, No MRG CHEST: CTA, BL, GAE, No W/R/R ABD: Soft, ND/NT, NABS 4x Q EXT: No C/C/E SKIN: Warm to touch PSYCH: No active psychosis, hallucinations, depression, SI/HI Objective Active Medications: Acetaminophen (Tylenol Tab*) 975 mg PO 0400,1200,2000 [facility] Last Admin: 01/31/19 12:11 Dose: Not Given Albuterol (Ventolin 2.5 Mg/3 Ml Neb.Yulisa*) 2.5 mg INH Q4H PRN PRN Reason: SOB/WHEEZING Apixaban (Eliquis*) 2.5 mg PO BID [facility] Last Admin: 01/31/19 08:14 Dose: 2.5 mg Bisacodyl (Dulcolax Supp*) 10 mg [place] DAILY PRN PRN Reason: constipation Cyclobenzaprine HCl (Flexeril Tab*) 10 mg PO TID PRN PRN Reason: SPASMS Diltiazem HCl (Cardizem Tab*) 30 mg PO BID [facility] Diphenhydramine HCl (Benadryl Iv*) 12.5 mg IV Q6H PRN PRN Reason: PRURITIS Docusate Sodium (Colace Cap*) 100 mg PO BID [facility] Last Admin: 01/31/19 08:14 Dose: 100 mg Lactated Ringer's (Lactated Ringers 1000 Ml Bag*) 1,000 mls @ 100 mls/hr IV PER RATE [facility] Last Admin: 01/30/19 18:04 Dose: 100 mls/hr Lactulose (Lactulose*) 30 ml PO Q6H PRN PRN Reason: constipation Magnesium Hydroxide (Milk Of Magnesia Liq*) 30 ml PO BID [facility] Last Admin: 01/31/19 08:18 Dose: Not Given Magnesium Hydroxide (Milk Of Magnesia Liq*) 30 ml PO Q6H PRN PRN Reason: constipation Metoprolol Succinate (Toprol Xl Tab*) 12.5 mg PO DAILY [facility] Last Admin: 01/31/19 08:14 Dose: 12.5 mg Morphine Sulfate (Morphine Vial*) 2 mg IV Q2H PRN PRN Reason: PAIN Ondansetron HCl (Zofran Inj*) 4 mg IV Q6H PRN PRN Reason: nausea Ondansetron HCl (Zofran Tab*) 4 mg PO Q6H PRN PRN Reason: NAUSEA Oxycodone HCl (Roxycodone Tab*) 10 mg PO Q4H PRN PRN Reason: SEVERE PAIN Last Admin: 01/30/19 22:01 Dose: 10 mg Oxycodone/Acetaminophen (Percocet 5/325 Tab*) 1 tab PO Q4H PRN PRN Reason: PAIN Oxycodone/Acetaminophen (Percocet 5/325 Tab*) 2 tab PO Q4H PRN PRN Reason: PAIN Last Admin: 01/31/19 12:07 Dose: 2 tab Polyethylene Glycol/Electrolytes (Miralax*) 17 gm PO DAILY PRN PRN Reason: Constipation Tramadol HCl (Ultram*) 50 mg PO Q6H PRN PRN Reason: PAIN Last Admin: 01/31/19 00:14 Dose: 50 mg Vital Signs - 8 hr 01/31/19 01/31/19 01/31/19 06:43 08:00 08:15 Temperature 97.4 F Pulse Rate 52 Respiratory 20 16 16 Rate Blood Pressure 141/73 (mmHg) O2 Sat by Pulse 97 97 Oximetry 01/31/19 01/31/19 01/31/19 11:55 12:07 13:33 Temperature 97.2 F Pulse Rate 51 55 Respiratory 18 16 18 Rate Blood Pressure 138/78 (mmHg) O2 Sat by Pulse 96 98 Oximetry Oxygen Devices in Use Now: None Result Diagrams: 01/31/19 05:57 01/31/19 05:57 Assess/Plan/Problems-Billing Assessment: - Patient Problems (1) Status post total right knee replacement Current Visit: Yes Status: Acute Code(s): Z96.651 - PRESENCE OF RIGHT ARTIFICIAL KNEE JOINT SNOMED Code(s): 8884090052397 Comment: -POD #1 -Defer with ortho (2) Bradycardia Current Visit: Yes Status: Acute Code(s): R00.1 - BRADYCARDIA, UNSPECIFIED SNOMED Code(s): 30130370 Comment: -Assymptomatic -Held Diltiazem and lowered Metoprolol; can restart diltiazem in AM (3) HTN (hypertension) Current Visit: Yes Status: Acute Code(s): I10 - ESSENTIAL (PRIMARY) HYPERTENSION SNOMED Code(s): 86973606 Comment: -Continue management w/slight changes as discussed until re-evaluated by PCP (4) Hypertrophic obstructive cardiomyopathy (HOCM) Current Visit: Yes Status: Acute Code(s): I42.1 - OBSTRUCTIVE HYPERTROPHIC CARDIOMYOPATHY SNOMED Code(s): 60393915 Comment: -Continue current regimne (5) DVT prophylaxis Current Visit: Yes Status: Acute Code(s): FET5455 - SNOMED Code(s): 690634524 Comment: -On Apixaban Status and Disposition: -Defer w/Ortho
[2019-01-31 15:54] VITALS: BP 134/74
--- NOTE | 2019-01-31 22:15 | DS ---
DISCHARGE SUMMARY: DATE OF ADMISSION: 01/30/19 DATE OF DISCHARGE: 01/31/19 ATTENDING PHYSICIAN: Dr. Salma Valiente.* (DICTATED BY OSMIN TIJERINA) ADMISSION DIAGNOSES: Severe end-stage degenerative arthritis of the right knee with posttraumatic arthritic changes and valgus deformity. DISCHARGE DIAGNOSES: Severe end-stage degenerative arthritis of the right knee with posttraumatic arthritic changes and valgus deformity. SURGERY PERFORMED: Right total knee arthroplasty. HOSPITAL COURSE: Patient is a 63-year-old male who had a prior trauma to the right knee in his 20s. He underwent ACL reconstruction surgery and went on to develop posttraumatic osteoarthritis. He had end-stage [id number] changes and developed a valgus deformity. He failed conservative management with antiinflammatories, pain medication, and intraarticular cortisone injections as well as physical therapy. Due to continued pain and decreased quality of life, he elected to proceed with right total knee arthroplasty. He was taken to the operating room under the care of Dr. Salma Valiente on the date of 01/30/19. He tolerated the procedure well and left the operating room in stable condition. Postoperatively, he progressed satisfactorily with his physical therapy and occupational therapy goals. His pain was well controlled with Percocet. He had no postoperative complications and was found to be stable medically and orthopedically for discharge to home on the date of 01/31/19. CONDITION ON DISCHARGE: Temperature 97.3, pulse 45, respiratory rate 16, O2 sats 99% on room air, blood pressure 134/74. His incision is healing without evidence of infection. There is no drainage. His calf remains soft and nontender. His neurovascular status is intact. He had active dorsiflexion of the right ankle without difficulty. DISCHARGE PLAN: He may bear weight as tolerated on the right lower extremity. He was provided with a prescription of Percocet 5/325 one to two tablets every 4 to 6 hours as needed for pain and he will continue with Eliquis 2.5 mg p.o. b.i.d. for DVT prophylaxis for the next 30 days. All questions were answered and he will follow up as scheduled with Dr. Valiente in roughly 10 to 14 days in the clinic. OSMIN TIJERINA [id number]/[facility] #: [id number] [facility] HOSPITALMichelle
[2019-02-01] MEDS ORDERED: Diltiazem TAB* 30 MG PO SCH (09:00)
== END 2019-01-31 16:15 | disposition home or self-care (01) | DRG 470 ==
LOC: AA 09:25 → SSU 18:00
PROVIDERS: ADMIT Orthopaedic Surgery Adult Reconstructive Orthopaedic Surgery; ATTEND Orthopaedic Surgery Adult Reconstructive Orthopaedic Surgery
PROC: 0SRC069 Replacement of Right Knee Joint with Oxidized Zirconium on Polyethylene Synthetic Substitute, Cemented, Open Approach (ICD-10-PCS; principal; 2019-01-30 12:15)
DX: M17.31 Unilateral post-traumatic osteoarthritis, right knee (principal); I42.1 Obstructive hypertrophic cardiomyopathy; M21.061 Valgus deformity, not elsewhere classified, right knee; I10 Essential (primary) hypertension; N40.0 Benign prostatic hyperplasia without lower urinary tract symptoms; E78.00 Pure hypercholesterolemia, unspecified; I08.3 Combined rheumatic disorders of mitral, aortic and tricuspid valves; M25.761 Osteophyte, right knee; I27.20 Pulmonary hypertension, unspecified; Z88.0 Allergy status to penicillin; Z88.8 Allergy status to other drugs, medicaments and biological substances; Z80.9 Family history of malignant neoplasm, unspecified; Z83.6 Family history of other diseases of the respiratory system; Z82.3 Family history of stroke; Z81.8 Family history of other mental and behavioral disorders; Z87.891 Personal history of nicotine dependence; R00.1 Bradycardia, unspecified; Z82.49 Family history of ischemic heart disease and other diseases of the circulatory system
CPT/HCPCS: 36415; 80048; 85014; 85018; 85049; A9270-GY; C1776; G8978-GP-CJ; G8979-GP-CI; J0461; J1100; J2250; J2405; J2704; J2795; J3010